=== PATIENT | male | born 1955 ===

== ENCOUNTER 2020-01-12 08:38 | Emergency (ER) | payer OTHER ==
[~2020-01-12] VITALS: Ht 177.8 cm; Wt 81.6 kg
== END 2020-01-12 10:00 | disposition home or self-care (01) ==
LOC: ER 08:38
DX: S76.811A Strain of other specified muscles, fascia and tendons at thigh level, right thigh, initial encounter (principal); X50.0XXA Overexertion from strenuous movement or load, initial encounter; Y93.89 Activity, other specified; Y92.098 Other place in other non-institutional residence as the place of occurrence of the external cause; Y99.8 Other external cause status

== ENCOUNTER → 2020-10-26 | Emergency (ER) | payer OTHER ==
[~2020-10-26] VITALS: Ht 177.8 cm; Wt 80.7 kg
== END | disposition home or self-care (01) ==
LOC: ER 03:59
DX: R51.9 Headache, unspecified (principal); U07.1 COVID-19

== ENCOUNTER 2022-11-29 03:14 | Emergency (ER) | payer OTHER ==
[~2022-11-29] VITALS: Ht 177.8 cm; Wt 81.6 kg
== END 2022-11-29 05:39 ==
LOC: ER 03:14
DX: H10.9 Unspecified conjunctivitis (principal)